=== PATIENT | female | born 1985 | race Caucasian/White ===

== ENCOUNTER 2019-02-21 11:55 | Emergency (ER) | payer OTHER ==
[~2019-02-21] VITALS: Ht 165.1 cm; Wt 82.1 kg
[~2019-02-21 11:55] MED LIST: IBUP-1542 PO; NITR-58 PO
[2019-02-21 12:01] VITALS: Ht 165.1 cm; Wt 82.1 kg
[2019-02-21] MEDS ORDERED: DOCU-144 PO (12:56)
[2019-02-21] MEDS ORDERED: MAGN296S40 PO (12:56)
--- NOTE | 2019-02-21 13:19 | ERD ---
ER Documentation Chief Complaint Chief Complaint bloating constipation x1wk HPI 33-year-old female with no significant past medical history presenting to the emergency department complaining of intermittent constipation for the past 2 days. She states that this morning she had a small amount of watery stool. She does admit to passing gas. She denies any abdominal pain, nausea, vomiting, fevers, chills, or other symptoms at this time. Symptoms are overall mild in severity. ROS All systems reviewed and are negative except as per history of present illness. Medications Home Meds Active Scripts Magnesium Citrate* (Magnesium Citrate*) 296 Ml Solution, 296 ML PO ONCE, #1 BOTTLE Prov:SUSANA POWER PA-C 02/21/19 Docusate Sodium* (Colace*) 100 Mg Capsule, 100 MG PO TID, #30 CAP Prov:SUSANA POWER PA-C 02/21/19 Ibuprofen* (Motrin*) 600 Mg Tab, 600 MG PO Q8 for 10 Days, #30 TAB 0 Refills Prov:BRYAN BHARDWAJ PA-C 04/29/16 Nitrofurantoin Monohyd Macrocr (Macrobid) 100 Mg Capsr, 100 MG PO BID for 7 Days, #14 CAP 0 Refills Prov:BRYAN BHARDWAJ PA-C 04/29/16 Allergies Allergies: Coded Allergies: No Known Allergy (Unverified , 02/21/19) PMhx/Soc Medical and Surgical Hx: pt denies Medical Hx, pt denies Surgical Hx Hx Alcohol Use: No Hx Substance Use: No Hx Tobacco Use: No Smoking Status: Never smoker FmHx Family History: No diabetes Physical Exam Vitals Vital Signs Date Temp Pulse Resp B/P (MAP) Pulse Ox O2 O2 Flow FiO2 Time Delivery Rate 02/21/19 98.5 84 18 125/84 98 12:01 (98) Physical Exam Const: No acute distress Head: Atraumatic Eyes: Normal Conjunctiva ENT: Normal External Ears, Nose and Mouth. Neck: Full range of motion. No meningismus. Resp: Clear to auscultation bilaterally Cardio: Regular rate and rhythm, no murmurs Abd: Soft, non tender, non distended. Normal bowel sounds. No rebound tenderness or guarding. No McBurney's point tenderness. Skin: No petechiae or rashes Back: No midline or flank tenderness Ext: No cyanosis, or edema Neur: Awake and alert Psych: Normal Mood and Affect Procedures/MDM 33-year-old female presented to the emergency department with signs and symptoms most consistent with constipation. Patient's abdominal examination is com pletely benign. I doubt acute surgical abdomen, appendicitis, cholecystitis, bowel obstruction, or other emergencies. Patient was offered treatment in the department, however she declined and states she would prefer prescriptions to treat her symptoms at home. She will be given prescription for magnesium citrate and Colace. No evidence of life-threatening pathology at time of d ischarge. Pt/family in agreement with discharge plan/diagnosis. Pt/family advised to return immediately with any new or worsening symptoms. Follow-up with primary care physician within the next 1-2 days. Disclaimer: Inadvertent spelling and grammatical errors are likely due to EHR/dictation software use and do not reflect on the overall quality of patient care. Also, please note that the electronic time recorded on this note does not necessarily reflect the actual time of the patient encounter. Departure Diagnosis: Primary Impression: Constipation Condition: Fair Patient Instructions: Constipation (Adult) Referrals: JERRY KERN (PCP) Additional Instructions: Call your primary care doctor TOMORROW for an appointment during the next 1-2 days.See the doctor sooner or return here if your condition worsens before your appointment time. SUSANA POWER PA-C February 21, 2019 13:19
[2019-02-21 13:26] VITALS: BP 121/79; PULSE 76; RESP 18
== END 2019-02-21 13:22 | disposition home or self-care (01) ==
LOC: FTE 11:55
DX: K59.00 Constipation, unspecified (principal)
CPT/HCPCS: 99282